=== PATIENT | female | born 1955 | race Caucasian/White ===

== ENCOUNTER 2019-10-19 09:10 | Outpatient (CLI) | payer MEDICARE, SELFPAY ==
[2019-10-19 10:21] LABS: Basophils Percent Auto 0.7 % (0.2-1.2); Eosinophils Absolute Auto 0.3 K/mm3 (0-0.3); Eosinophils Percent Auto 4.8 % (0-4.4); Hematocrit 43.4 % (37.0-47.0); Hemoglobin 13.7 g/dL (12.0-15.0); Immature Granulocyte Absolute 0.02 K/mm3 (0.00-0.031); Immature Granulocyte Percent A 0.3 % (0-0.5); Lymphocytes Absolute Auto 1.68 K/mm3 (0.9-3.2); Lymphocytes Percent Auto 28.7 % (18.3-44.2); Mean Corpuscular HGB Conc 31.6 g/dl (32-36); Mean Corpuscular Hemoglobin 31.9 pg (26-34); Mean Corpuscular Volume 100.9 fl (80-100); Mean Platelet Volume 12.2 fl (7.4-10.4); Monocytes Absolute Auto 0.5 K/mm3 (0.1-0.6); Monocytes Percent Auto 8.2 % (2.6-8.5); Neutrophils Absolute Auto 3.4 K/mm3 (1.3-6.7); Neutrophils Percent Auto 57.3 % (45.5-73.1); Platelet Count Result 223 k/mm3 (150-375); Red Cell Distribution Width 13.7 % (11.5-14.5); White Blood Count 5.9 K/mm3 (4.5-10.0)
[2019-10-19 10:44] LABS: Alanine Aminotransferase 15 U/L (4-35); Albumin Level 4.1 g/dL (3.5-5.1); Alkaline Phosphatase 78 U/L (38-126); Aspartate Amino Transferase 23 U/L (14-36); Bilirubin,Total 0.4 mg/dL (0.2-1.3); Blood Urea Nitrogen 16 mg/dL (7-17); Carbon Dioxide 29 mmol/L (22-30); Chloride 102 mmol/L (98-107); Cholesterol 227 mg/dL (0-200); Estimated Glomerular Filt Rate > 60; Glucose 88 mg/dL (65-105); HDL Direct 64 mg/dL; Potassium 3.7 mmol/L (3.4-5.0); Sodium 141 mmol/L (137-145); Triglycerides 325 mg/dL (<150)
[2019-10-19 10:55] LABS: LDL Cholesterol Direct 101 mg/dL
[2019-10-19 11:20] LABS: Vitamin D 25 Hydroxy 20.8 ng/mL
--- NOTE | 2019-10-20 15:37 | WPDPFTINT ---
PFT Interpretation PFT Interpretation: This PFT met all criteria for ATS standards and reproducibility FEV/FVC post bronchodilator 79% of predicted FEV1 48% of predicted or 1.02 liters FVC 44% of predicted or 1.29 liters TLC 48% of predicted RV 51% of predicted RV/TLC 41% of predicted DLCO 33% of predicted or 9.2 liters when adjusted for alveolar volume Flow volume loops showed some expiratory coving Impression: Severe restrictive ventilatory defect is present. Obstructive defect may also be present. Severely reduced diffusion capacity. This pattern may be suggestive of ILD. Clinical and radiographic correlation is advised
== END 2019-10-19 09:11 | disposition home or self-care (01) ==
LOC: ANHPFT 09:18
PROVIDERS: PCP Internal Medicine; Visit Provider Nurse Practitioner
DX: R06.02 Shortness of breath (principal); R94.2 Abnormal results of pulmonary function studies; Z13.220 Encounter for screening for lipoid disorders; M85.80 Other specified disorders of bone density and structure, unspecified site; E03.9 Hypothyroidism, unspecified; I10 Essential (primary) hypertension; D64.9 Anemia, unspecified
CPT/HCPCS: 36415; 80053; 80061; 82306; 84443; 85025; 94060; 94375; 94726; 94729

== ENCOUNTER 2021-08-14 09:01 | Outpatient (CLI) | payer MEDICARE, SELFPAY ==
--- NOTE | ~2021-08-14 | NM_ITS ---
EXAMINATION: NM govind stress w perfusion DATE: 08/14/2021 12:18 INDICATION: Dyspnea TECHNIQUE: Rest images were obtained following intravenous administration of 9.44 mCi Tc99m tetrofosm in (Myoview). The patient was infused intravenously with Lexiscan (Regadenoson). Then, 29.4 mCi Tc99m tetrofosmin (Myoview) was administered intravenously, and stress images were obtained. Data was roberto nstructed into short axis and horizontal and vertical long axis SPECT images. Gated SPECT images were also obtained. COMPARISON: None. FINDINGS: There is a large moderate severity perfusion defect involving the anterior heart, specifica lly the mid anteroseptal, anteroapical, mid anterior, basilar anterior and mid anterolateral segments which is only partially reversible. This could be consistent with combination of ischemia and infarc t. The myocardium at this location however appears to minimally thickened with no wall motion abnorma lity on the gated post stress images. There also appears to be photopenic regions of breast attenuati on artifact which extend across the anterior wall on the rotating source images. These findings sugge st that this could all represent breast attenuation artifact. The patient was however unable to refugio ate prone positioning to minimize contribution of breast attenuation artifact. There is normal left v entricular chamber size, wall motion and ejection fraction. Left ventricular ejection fraction measu res >70%. IMPRESSION: 1. Large partially reversible moderate severity perfusion defect which could represent a combination of infarct and ischemia involving the anterior wall as well as the adjacent mid anteroseptal and ante rolateral segments. For reasons as detailed above however suspect that this may all represent breast attenuation artifact. Patient was unable to tolerate prone imaging which would otherwise been utilize d to minimize this affect. 2. Left ventricular ejection fraction measuring >70%. Reviewed, dictated and finalized at location A. IMPRESSION: 1. Large partially reversible moderate severity perfusion defect which could re present a combination of infarct and ischemia involving the anterior wall as we ll as the adjacent mid anteroseptal and anterolateral segments. For reasons as detailed above however suspect that this may all represent breast attenuation a rtifact. Patient was unable to tolerate prone imaging which would otherwise bee n utilized to minimize this affect. 2. Left ventricular ejection fraction measuring >70%.
--- NOTE | 2021-08-14 09:49 | EST_ITS ---
Patient Info Name: Severino Sanderson Age: 65 years : 1955 Gender: Female Wt: 246 lbs HR: 68 bpm BP: 166 / 91 mmHg Heart Rhythm: Sinus Rhythm Exam Date: 08/14/2021 10:32 AM Exam Location: [facility] ([facility]) Stress Patient Status: Outpatient Admit Date: 08/14/2021 Staff Ordering Physician: Nick Wilson DO Attending Provider: Nick Wilson DO Exercise Technologist: Josie Honeycutt CT Exercise Physician: Nick Wilson DO Exam Type: CA stress govind w NM Study Info Indications R06.09 - Other forms of dyspnea A regadenoson stress test was performed. Summary 1. 1. Negative lexiscan stress test for ischemic ST changes by ECG criteria. 2. 2. Baseline hypertension. 3. 3. Nuclear scan to follow and will be reported separately. Please correlate with it. Protocol: Lexiscan Stress ECG Details Stage: REST Duration (min): 1 min : 54 sec HR (bpm): 69 SBP (mmHg): 166 DBP (mmHg): 91 Stage: REST Duration (min): 7 min : 49 sec HR (bpm): 69 SBP (mmHg): 166 DBP (mmHg): 91 Stage: STAGE 1 Duration (min): 0 min : 59 sec HR (bpm): 76 SBP (mmHg): 166 DBP (mmHg): 91 Stage: RECOVERY Duration (min): 1 min : 0 sec HR (bpm): 75 SBP (mmHg): 174 DBP (mmHg): 75 Stage: RECOVERY Duration (min): 2 min : 0 sec HR (bpm): 74 SBP (mmHg): 174 DBP (mmHg): 75 Stage: RECOVERY Duration (min): 3 min : 0 sec HR (bpm): 74 SBP (mmHg): 142 DBP (mmHg): 75 Stage: RECOVERY Duration (min): 3 min : 11 sec HR (bpm): 73 SBP (mmHg): 142 DBP (mmHg): 75 Rest HR: 69 bpm Peak HR: 77 bpm Rest Sys BP: 166 mmHg Peak Sys BP: 174 mmHg Max Pred HR: 154 bpm % Max Pred HR: 50 % Target HR: 131 bpm Max RPP: 13,398 bpm*mmHg Termination Reason: Completed protocol Cardiac Symptoms: Shortness of breath Total Time: 1 min : 0 sec Rest Navarrete BP: 91 mmHg Peak Navarrete BP: 75 mmHg Total Dose: 0.4 mg Resting ECG Sinus rhythm with first degree AV block. Stress ECG No ST changes. Arrhythmias None. Report Signatures
== END 2021-08-14 09:02 | disposition home or self-care (01) ==
LOC: ANHCARD 09:08
PROVIDERS: PCP Internal Medicine; Visit Provider Internal Medicine Cardiovascular Disease
DX: R06.09 Other forms of dyspnea (principal); R94.39 Abnormal result of other cardiovascular function study; I10 Essential (primary) hypertension
CPT/HCPCS: 78452; 93017; A9502; J2785

== ENCOUNTER 2022-06-26 07:33 | Outpatient (CLI) | payer MEDICARE, SELFPAY ==
--- NOTE | ~2022-06-26 | MM_ITS ---
EXAMINATION: MM scrn demetria implant BI w sharmaine HISTORY: Screening mammogram TECHNIQUE: Craniocaudal and mediolateral oblique 3-D tomosynthesis images with implant displacement a nd synthetic 2-D images were generated. Craniocaudal and mediolateral oblique views of the breasts wi thout implant displacement were obtained using full field digital mammography. CAD analysis was submi tted and interpreted. COMPARISON: 02/03/2019 diagnostic right mammogram and limited right breast ultrasound examination BREAST PARENCHYMAL COMPOSITION: There are scattered areas of fibroglandular density. FINDINGS: Status post bilateral augmentation mammoplasty. There is no evidence of suspicious mass, ca lcification, or architectural distortion to suggest malignancy in either breast. There has been no rodas spicious interval change. IMPRESSION: 1. No mammographic evidence of malignancy. 2. Recommend routine screening mammography in one year. BI-RADS Category 1: Negative Reviewed, dictated and finalized at location A.
== END 2022-06-26 07:34 | disposition home or self-care (01) ==
LOC: ANHIMG 07:33
PROVIDERS: PCP Internal Medicine; Visit Provider Nurse Practitioner
DX: Z12.31 Encounter for screening mammogram for malignant neoplasm of breast (principal)
CPT/HCPCS: 77063; 77067

== ENCOUNTER 2022-07-01 08:31 | Outpatient (CLI) | payer MEDICARE, SELFPAY ==
--- NOTE | ~2022-07-01 | MR_ITS ---
EXAMINATION: MR abdomen wo/w con DATE: 07/01/2022 11:25 INDICATION: Liver mass. TECHNIQUE: Magnetic resonance imaging (MRI) of the abdomen was performed without and with 20 mL Multi Cadence intravenous contrast. COMPARISON: Abdomen MRI 04/05/2016 FINDINGS: Breast implants are noted. In right hepatic lobe, there is a 2.6 cm mass with interrupted peripheral puddling of contrast, consistent with a hemangioma. There are greater than 10 arterial enhancing mass es in the liver measuring up to 12 mm without washout. The masses are occult on T2-weighted images. T here is a 5 mm cystic lesion in the pancreas. The spleen and right adrenal gland are normal. There is a 2.4 cm mass in left adrenal gland containing microscopic fat, consistent with an adenoma. Right ki dney is normal. There is a 5 mm cyst in left kidney. There are no dilated loops of bowel. There is di verticulosis of the colon without evidence of diverticulitis. There are no pathologically enlarged ly mph nodes. There is no free intraperitoneal fluid. There is a 3.7 cm cystic lesion in left ovary with thin septations. IMPRESSION: 1. 2.6 cm hemangioma in the liver. 2. Greater than 10 arterially enhancing masses in the liver measuring up to 12 mm. In the absence of known malignancy or chronic liver disease, these findings are likely benign and may be hemangiomas, f ocal nodular hyperplasia, or transient hepatic intensity difference. 3. 3.7 cm cystic lesion in left ovary with thin septations, likely benign. Pelvis ultrasound is recom mended in one year. Reviewed, dictated and finalized at location A. IMPRESSION: 1. 2.6 cm hemangioma in the liver. 2. Greater than 10 arterially enhancing masses in the liver measuring up to 12 mm. In the absence of known malignancy or chronic liver disease, these findings are likely benign and may be hemangiomas, focal nodular hyperplasia, or transi ent hepatic intensity difference. 3. 3.7 cm cystic lesion in left ovary with thin septations, likely benign. Pelv is ultrasound is recommended in one year.
--- NOTE | ~2022-07-01 | DEXA_ITS ---
Bone Density Report Name: CHENG MARAVILLA Age: 66 Sex: Female Ethnicity: White Date of : 1955 Indication: osteopenia; height loss; prior fracture; Referring Provider: NICOLE RIVERO Study: Bone densitometry was performed. Exam Date: July 01, 2022 Accession number: [id number] Bone Density: Region BMD T-score Z-score Classification AP Spine(L1, L3, L4) 1.032 -0.2 1.8 Normal Femoral Neck (Left) 0.581 -2.4 -0.7 Osteopenia Total Hip (Left) 0.777 -1.4 0.0 Osteopenia Femoral Neck (Right) 0.718 -1.2 0.5 Osteopenia Total Hip (Right) 0.779 -1.3 0.0 Osteopenia Total Hip Mean 0.778 -1.4 0.0 Osteopenia World Health Organization criteria for BMD impression classify patients as: Normal (T-score at or above -1.0), Osteopenia (T-score between -1.0 and -2.5), or Osteoporosis (T-score at or below -2.5). 10-year Fracture Risk(1): Major Osteoporotic Fracture 19% Hip Fracture 3.6% Reported Risk Factors: [place] (), Neck BMD=0.581, BMI=39.3, previous fracture (1) FRAX(R) Version 3.08. Fracture probability calculated for an untreated patient. Fracture probability may be lower if the patient has received treatment. Previous Exams: Region Exam Age BMD T-score BMD Change BMD Change Date g/cm2 vs Baseline vs Previous Total Hip(Left) 07/01/2022 66 0.777 -1.4 -0.006 (-0.7%) -0.006 (-0.7%) 01/18/2019 63 0.783 -1.3 Total Hip(Right) 07/01/2022 66 0.779 -1.3 -0.028 (-3.5%) -0.028 (-3.5%) 01/18/2019 63 0.807 -1.1 *Denotes significance at 95% confidence level, LSC for Total Hip = 0.027 g/cm2 Clinical Information Provided by Patient: Has had a low trauma fracture Has used the following medications: Vitamin D, Calcium Patient maximum height was 66 Menopause Age: 50 No regular weight bearing exercise Does not regularly consume dairy products Onset of menses at age 11 Number of children 4 Impression: The patient has low bone mass, based on the Left Femoral Neck T-score. The patient has an estimated ten-year risk of hip fracture of 3.6% and an estimated ten-year risk of major fracture of 19%, based on the WHO FRAX algorithm. The patient has risk factors, including: previous fracture. The BMD for the Total Hip(Right) decreased, changing by -3.5% since the last DXA exam. Discussion: BONE DENSITY IS LOW AT ONE OR MORE SKELETAL SITES. THE PATIENT'S BMD AND CLINICAL RISK FACTORS CONTRIBUTE TO THIS PATIENT'S INCREASED RISK OF FRACTURE. This patient's lowest T-score is
== END 2022-07-01 08:32 | disposition home or self-care (01) ==
PROVIDERS: PCP Internal Medicine; Visit Provider Nurse Practitioner
DX: M81.0 Age-related osteoporosis without current pathological fracture (principal); K76.9 Liver disease, unspecified; K86.2 Cyst of pancreas; N28.1 Cyst of kidney, acquired; D18.09 Hemangioma of other sites; N83.202 Unspecified ovarian cyst, left side; M85.852 Other specified disorders of bone density and structure, left thigh; M85.851 Other specified disorders of bone density and structure, right thigh
CPT/HCPCS: 74183; 77080; A9577

== ENCOUNTER 2023-08-24 14:17 | Outpatient (CLI) | payer MEDICARE, SELFPAY ==
--- NOTE | ~2023-08-24 | XR_ITS ---
XR knee LT 3V DATE: 08/24/2023 14:29 INDICATION: Bilateral knee pain. No recent injury. TECHNIQUE: AP, lateral, sunrise views COMPARISON: None FINDINGS: Moderate to moderately severe tricompartment osteoarthritis. No fracture or dislocation. Suprapatellar knee joint effusion is suggested. No fracture, dislocation, periosteal reaction or bone destruction, radiopaque intra-articular loose b ben or chondrocalcinosis is detected. IMPRESSION: Moderate to moderately severe tricompartment osteoarthritis and suggestion of suprapatell ar joint effusion Reviewed, dictated and finalized at location L. OID SOFTWARE ENGINEER IMPRESSION: Moderate to moderately severe tricompartment osteoarthritis and sug gestion of suprapatellar joint effusion
--- NOTE | ~2023-08-24 | XR_ITS ---
XR knee RT 3V DATE: 08/24/2023 14:29 INDICATION: Bilateral knee pain. No recent injury. TECHNIQUE: AP, lateral, sunrise views COMPARISON: None FINDINGS: There is prominent joint space narrowing and periarticular spurring at all 3 compartments, most severe at the lateral compartment, consistent with moderately severe to severe osteoarthritis. There is distention of suprapatellar bursa consistent with joint effusion. No fracture or dislocation, periosteal reaction or bone destruction, radiopaque intra-articular loose body or chondrocalcinosis is detected. Osteopenia. IMPRESSION: Moderately severe to severe tricompartment osteoarthritis Suprapatellar knee joint effusion Reviewed, dictated and finalized at location L. PULLER
== END 2023-08-24 14:18 ==
PROVIDERS: PCP Internal Medicine; Visit Provider Clinical Nurse Specialist
DX: M17.0 Bilateral primary osteoarthritis of knee (principal); M25.462 Effusion, left knee; M25.461 Effusion, right knee
CPT/HCPCS: 73562